=== PATIENT | male | born 1995 | race Caucasian/White ===

== ENCOUNTER 2021-05-25 23:19 | Emergency (ER) | payer BC, OTHER ==
[2021-05-25 23:28] VITALS: BP 136/54; PULSE 81; TEMP 98.3; BMI 27.8
[2021-05-26] MEDS ORDERED: DIPHTH,PERTUSS(ACELL),TET 0.5 ML DISP.SYRIN IM ONE ×2 (00:20→00:43)
== END 2021-05-26 01:02 | disposition home or self-care (01) ==
LOC: JER 23:19
PROC: 0HQFXZZ Repair Right Hand Skin, External Approach (ICD-10-PCS; principal; 2021-05-25)
PROC: 3E0234Z Introduction of Serum, Toxoid and Vaccine into Muscle, Percutaneous Approach (ICD-10-PCS; 2021-05-25)
DX: S61.411A Laceration without foreign body of right hand, initial encounter (principal); W26.0XXA Contact with knife, initial encounter; Y92.9 Unspecified place or not applicable
CPT/HCPCS: 90715; 99284-25

== ENCOUNTER 2021-06-03 11:36 | Emergency (ER) | payer OTHER ==
[2021-06-03 11:51] VITALS: BP 136/87; PULSE 82; TEMP 97.9; BMI 27.8
[2021-06-03] MEDS ORDERED: IBUPROFEN 400 MG TABLET (FP) PO ONE ×2 (12:25→12:49)
== END 2021-06-03 12:58 | disposition home or self-care (01) ==
LOC: JER 11:36
DX: Z48.02 Encounter for removal of sutures (principal)
CPT/HCPCS: 99281-25